=== PATIENT | female | born 1990 | race Caucasian/White ===

== ENCOUNTER 2023-08-31 15:42 | Emergency (ER) | payer OTHER, SELFPAY ==
--- NOTE | 2023-08-31 15:54 | ED.FEMALEGU ---
HPI - Female Genitourinary General Chief complaint: Urogenital-Female Stated complaint: uti symptoms Time Seen by Provider: 08/31/23 15:54 Source: patient Mode of arrival: ambulatory Limitations: no limitations History of Present Illness HPI Narrative: Mikki is a 33-year-old female patient presenting to clinic today with complaints of possible urinary tract infection x2 days. She reports she is having frequency of urination with burning with urination. Did have some back pain yesterday however that has improved. Denies any abdominal pain Related Data Allergies Allergy/AdvReac Type Severity Reaction Status Date / Time Sulfa (Sulfonamide Allergy Other Verified 08/31/23 16:09 Antibiotics) Review of Systems Review of Systems: Pertinent positives per HPI. Patient denies any fever, chills, rash, headache, visual changes, dizziness, cough, runny nose, sore throat, shortness of breath, chest pain, palpitations, nausea, vomiting, diarrhea, constipation, abdominal pain. PMFSH Comments At the time of my signature, I reviewed and agree with the nursing past medical, surgical, social, and family history. There is no relevant family history pertinent to the patient complaint. Exam Narrative: General: Well-developed, well nourished, in no apparent distress. Head: Normocephalic, atraumatic. Cardio: Regular rate and rhythm, s1 and s2 normal, no murmur appreciated. Resp: Clear to auscultation bilaterally, no rhonchi, rales, wheezing or rubs. Abdomen: Soft, pliable, bowel sounds present in all quadrants, non-tender to palpation, no organomegly, no CVAT tenderness. Course Course Emergency Course: Portions of this record may have been created with voice recognition software. Level of Care: Express Care Visit Vital Signs Vital signs: Vital signs reviewed MDM - Female Genitourinary MDM Narrative Medical decision making narrative: At the time of visit patient is resting comfortably on the exam table. Patient appears to be nontoxic. UA shows 2+ leukocytes 1+ blood. Will send urine for culture. Will place patient on Macrobid. Supportive measures were discussed with the patient and they voiced understanding discharge instructions and agrees to treatment plan. Return precautions reviewed Differential Diagnosis Differential diagnosis: Likely urinary tract infection and cystitis Discharge Plan Discharge Clinical Impression: Urinary tract infection Patient Disposition: Home, Self-Care Condition: Stable Instructions: Antibiotic Form, Urinary Tract Infection in Women (ED) Additional Instructions: UA positive for 2+ leukocytes and 1+ blood. We will send urine for culture Take Macrobid as prescribed Increase fluids and stay well hydrated Wipe front to back. May use wet wipes. Avoid tub baths If sexually active- pee before and after intercourse. Wear cotton panties Avoid tight clothing up against the genitals Follow up with your PCP in 1 week if symptoms persist. Prescriptions: New nitrofurantoin monohyd/m-cryst [Macrobid] 100 mg capsule 100 mg PO Q12H 5 Days Qty: 10 0RF Rx Instructions: must administer with a meal/food Follow-up/Referrals: PHYSICIAN,FORKLIFT SUPERVISOR [Primary Care Provider] - Time of Disposition: 16:13 Quality NIHSS Nursing Documentation ED NIHSS nursing documentation: reviewed/agree
[2023-08-31 16:03] VITALS: BP 106/67; PULSE 86; RESP 16; TEMP 36.6; O2SAT 100
== END 2023-08-31 16:16 | disposition home or self-care (01) ==
LOC: EXPTROY 15:56
PROVIDERS: Emergency Provider Nurse Practitioner Family
DX: N39.0 Urinary tract infection, site not specified (principal); B96.20 Unspecified Escherichia coli [E. coli] as the cause of diseases classified elsewhere
CPT/HCPCS: 81003; 87077; 87086; 87186; 99213; G0463

== ENCOUNTER 2023-12-11 15:11 | Emergency (ER) | payer OTHER, SELFPAY ==
[2023-12-11 15:22] VITALS: BP 110/61; PULSE 101; RESP 16; TEMP 36.8; O2SAT 100
--- NOTE | 2023-12-11 15:33 | ED.SKABFB ---
HPI - Skin/Abscess/Foreign Bdy General Chief complaint: Skin/Abscess/Foreign Body Stated complaint: rash Time Seen by Provider: 12/11/23 15:33 Source: patient Mode of arrival: ambulatory Limitations: no limitations History of Present Illness HPI narrative: 33-year-old female presented for complaint of itchy rash to the left wrist and right elbow over the past 3 days. She states rash started after trimming weeds. She endorses a history reaction to poison hever and poison sumac. She has applied hydrocortisone and Benadryl cream and has taken Benadryl without significant improvement. She endorses the lesions have been losing today. Denies lip, tongue, or throat swelling, shortness of breath or wheezing. Denies changes to soap, detergent, lotion, or any other exposures. No one else in the house or any contacts with similar symptoms. Related Data Allergies Allergy/AdvReac Type Severity Reaction Status Date / Time Sulfa (Sulfonamide Allergy Other Verified 12/11/23 15:26 Antibiotics) Review of Systems Review of Systems: CONSTITUTIONAL: Denies body aches, fever, chills, or sweats. EYES: Denies visual changes, redness, or discharge. ENT: Denies rhinorrhea, congestion CARDIOVASCULAR: Denies chest pain, palpitations, or edema. RESPIRATORY: Denies cough or dyspnea. GASTROINTESTINAL: Denies abdominal pain, nausea, vomiting, or diarrhea. SKIN: reports rash to left wrist and right arm MUSCULOSKELETAL: Denies back pain, joint pain, or myalgia. NEUROLOGIC: Denies headache, numbness, tingling, or weakness. PMFSH Comments At time of signature, I have reviewed and agree with nursing past medical, surgical, social and family history unless otherwise noted. Please see nursing chart for further information. There is no relevant family history pertinent to the presenting complaint Exam Narrative: GENERAL: Well-appearing HEAD: Normocephalic, atraumatic. EYES: conjunctivae clear, and EOMI. ENT: Mucous membranes moist. Oropharynx without edema, erythema or lesions. NECK: Supple. No lymphadenopathy CHEST: Clear to auscultation. HEART: Regular rate and rhythm. SKIN: Warm, dry. Left wrist with approx 2cm diameter area of vesicles with clear drainage c/w contact dermatitis; right AC with vesicles in linear pattern approx 2cm length, and cluster of vesicles medially; c/w contact derm. No induration, no tenderness. NEURO: Alert and oriented x3. Course Course Emergency Course: Patient is aware of diagnosis, understands and agrees to treatment plan. Anticipatory guidance given. Patient agrees to follow-up as directed and is aware of reasons to seek care at the emergency department. Portions of this record may have been created with voice recognition software Level of Care: Express Care Visit Vital Signs Vital signs: Vital Signs Temperature 98.2 F 12/11/23 15:22 Pulse Rate 101 H 12/11/23 15:22 Respiratory Rate 16 12/11/23 15:22 Blood Pressure 110/61 12/11/23 15:22 Pulse Oximetry 100 12/11/23 15:22 Oxygen Delivery Room Air 12/11/23 15:22 Temperature 98.2 F 12/11/23 15:22 Pulse Rate 101 H 12/11/23 15:22 Respiratory Rate 16 12/11/23 15:22 Blood Pressure 110/61 12/11/23 15:22 Pulse Oximetry 100 12/11/23 15:22 Oxygen Delivery Room Air 12/11/23 15:22 Reviewed MDM - Skin/Abscess/Foreign Bdy MDM Narrative Medical decision making narrative: Discussed physical exam findings. Advised supportive measures and signs/symptoms to go to the ER. Pt is appropriate for outpt treatment and f/u. Instructed patient to go to nearest ER immediately for any worsening symptoms including but not limited to: fever, spreading rash, pain, sore throat, headache, dizziness, chest pain, trouble breathing, or any symptoms concerning to the patient. Differential Diagnosis Differential diagnosis: Likely abscess of skin or subcutaneous tissue, urticaria, herpes zoster, cellulitis and contact dermatitis Disc
== END 2023-12-11 15:42 | disposition home or self-care (01) ==
PROVIDERS: Emergency Provider Nurse Practitioner Family
DX: L25.9 Unspecified contact dermatitis, unspecified cause (principal)
CPT/HCPCS: 99213; G0463

== ENCOUNTER 2024-03-08 19:29 | Emergency (ER) | payer OTHER, SELFPAY ==
[2024-03-08 19:39] VITALS: BP 141/81; PULSE 78; RESP 16; TEMP 36.2; O2SAT 100
--- NOTE | 2024-03-08 19:40 | ED.GENADULT ---
HPI - General Adult General Chief complaint: Urogenital-Female Stated complaint: UTI SYMPTOMS Time Seen by Provider: 03/08/24 19:41 History of Present Illness HPI narrative: patient presents with complaints of urinary frequency and burning since yesterday. Denies any back pain or abdominal pain. No fever, chills, sweats. Voices no other concerns or complaints at this time. Related Data Allergies Allergy/AdvReac Type Severity Reaction Status Date / Time Sulfa (Sulfonamide Allergy Other Verified 12/11/23 15:26 Antibiotics) Review of Systems Review of Systems: All systems reviewed & are unremarkable except as noted in HPI and below Constitutional: Constitutional: Reports no additional constitutional complaints ENT: Reports system reviewed and no additional complaints, except as documented Cardiovascular: Cardiovascular: Reports no additional cardiovascular complaints Respiratory: Respiratory: Reports no additional respiratory complaints Gastrointestinal: Gastrointestinal: Reports no additional gastrointestinal complaints Genitourinary: Genitourinary: Reports dysuria, Reports urinary hesitancy and Reports urinary urgency Exam Const: General: cooperative, no acute distress, alert and awake Orientation/consciousness: oriented to person, oriented to place and oriented to time HENMT: Head: normal to inspection Resp: Effort & Inspection: normal respiratory effort and able to speak in complete sentences Auscultation: clear to auscultation bilaterally, no crackles, no rales, no rhonchi and no wheezes Cardio: Palpation: normal PMI Rate: regular rate Rhythm: regular rhythm Heart sounds: S1 normal heart sound present and S2 normal heart sound present : General: Yes bladder normal to palpation and Yes no CVA tenderness Neuro: General: oriented to person, oriented to place and oriented to time Cranial nerves: Yes CN's II-XII intact bilaterally Psych: Appearance: grossly normal Thought process: Normal thought process present Insight: Good insight present (Psych) Judgement: Good judgement present (Psych) Course Course Level of Care: Express Care Visit Vital Signs Vital signs: Vital Signs Temperature 97.1 F L 03/08/24 19:39 Pulse Rate 78 03/08/24 19:39 Respiratory Rate 16 03/08/24 19:39 Blood Pressure 141/81 H 03/08/24 19:39 Pulse Oximetry 100 03/08/24 19:39 Temperature 97.1 F L 03/08/24 19:41 Pulse Rate 78 03/08/24 19:41 Respiratory Rate 16 03/08/24 19:41 Blood Pressure 141/81 H 03/08/24 19:41 Pulse Oximetry 100 03/08/24 19:41 Medical Decision Making MDM Narrative Medical decision making narrative: UA suggestive of UTI. Culture sent. Negative test. Benign exam. Sent home with prescription for Macrobid. Elevated blood pressure discussed. Patient follow-up with primary care provider. Emergency department for any new or worsening symptoms Differential Diagnosis Differential Diagnosis: differential diagnoses include pyelonephritis, UTI, cystitis, dysuria Medical Records Medical records reviewed: Yes I reviewed the external patient's medical records. Vital Signs Vital Signs: Vital Signs Temperature 97.1 F L 03/08/24 19:39 Pulse Rate 78 03/08/24 19:39 Respiratory Rate 16 03/08/24 19:39 Blood Pressure 141/81 H 03/08/24 19:39 Pulse Oximetry 100 03/08/24 19:39 Temperature 97.1 F L 03/08/24 19:41 Pulse Rate 78 03/08/24 19:41 Respiratory Rate 16 03/08/24 19:41 Blood Pressure 141/81 H 03/08/24 19:41 Pulse Oximetry 100 03/08/24 19:41 reviewed Lab Data Lab results reviewed: Yes I reviewed the patient's lab results. Labs: Lab Results 03/08/24 Range/Units 19:48 POC Urine Color Yellow POC Urine Clarity Cloudy POC Urine pH 5.5 POC Ur Specif [place] 1.005 POC Urine Protein Negative POC Ur Glucose (UA) Negative POC Urine Ketones Negative POC Urine Blood 1+ POC Urine Nitrite Negat
[2024-03-08 19:41] VITALS: BP 141/81; PULSE 78; RESP 16; TEMP 36.2; O2SAT 100
[2024-03-08 19:50] LABS: EDUAAPPEAR Cloudy; EDUABILI Negative; EDUABLOOD 1+; EDUACOLOR1 Yellow; EDUAGLUCOSE Negative; EDUAKETONE Negative; EDUALEUKO 1+; EDUANITRATE Negative; EDUAPH 5.5; EDUAPROTEIN Negative; EDUASPGRAVITY 1.005; EDUAUROBILI 0.2
== END 2024-03-08 20:02 | disposition home or self-care (01) ==
PROVIDERS: Emergency Provider Nurse Practitioner Family
DX: N39.0 Urinary tract infection, site not specified (principal); B96.20 Unspecified Escherichia coli [E. coli] as the cause of diseases classified elsewhere
CPT/HCPCS: 81003; 81025; 87077; 87086; 87186; 99213; G0463

== ENCOUNTER 2024-11-01 10:11 | Emergency (ER) | payer OTHER, SELFPAY ==
--- NOTE | ~2024-11-01 | XR_ITS ---
Clinical Indication: Cough PA and lateral views of the chest: Comparison: 12/09/2019 Findings: The lungs are clear, without evidence of focal consolidation or pleural effusion. Cardiome diastinal silhouette is within normal limits. Bones and soft tissues are unremarkable. Impression: Normal chest. Reviewed, dictated and finalized at [facility]. Impression: Normal chest.
--- OUTSIDE RECORDS SUMMARY | 2024-11-01 10:12 | XMS_ITS | Clinical Summary ---
Author Organization [facility] Address [address] [place] [address] Care Team Providers Care Mechanical Striper Name Role Phone Unavailable Primary Care Provider Unavailabl e Source Comments [facility],non-owned Affiliates and Associated Physician Practices is amultiple site organization consisting of ambulatory clinics and hospital sitesin [place], [place], [place] and [place]. This disclosure is being madepursuant to the Care Everywhere program and may not contain all information available regarding this patient. Last updated 18.[facility] Allergies Active Allergy Reactions Criticality Noted Date Comments Sulfa Drugs 04/14/2013 Medications Be aware that medications may not be up to date on this document. Always verify current medications with the patient. No known medications Active Problems No known active problems Social History Tobacco Use Types Packs/Day Years Used Date Smoking Tobacco: Never Alcohol Use Standard Drinks/Week Comments Yes 1.7 (1 standard drink = 0.6 oz p ure alcohol) Sex and Gender Information Value Date Recorded Sex Assigned at Not on file Gender Identity Not on file Sexual Orientation Not on file Last Filed Vital Signs Vital Sign Reading Time Taken Comments Blood Pressure 110/73 04/14/2013 11:07 AM CDT Pulse 64 04/14/2013 11:07 AM CDT Temperature 36.3 C (97.3 F) 04/14/2013 11:07 AM CDT Respiratory Rate 16 04/14/2013 11:07 AM CDT Oxygen Saturation 100% 04/14/2013 11:07 AM CDT Inhaled Oxygen Concentration - - Weight 59.4 kg (131 lb) 04/14/2013 11:07 AM CDT Height 162.6 cm (5' 4 ) 04/14/2013 11:07 AM CDT Body Mass Index 22.49 04/14/2013 11:07 AM CDT Plan of Treatment Health Maintenance Due Date Last Done Comments PAP SMEAR 1989 HIV SCREENING 2004 HEPATITIS C SCREENING 07/21/2007 DTAP/TDAP/TD VACCINES (1 - Tdap) 2008 HEPATITIS B VACCINE (1 of 3 - 19+ 3-dose series) 2008 COVID-19 VACCINE (1 - 2023-2 5 season) 2024 INFLUENZA VACCINE (#1) 2024 DEPRESSION SCREENING 08/26/2024 ZOSTER VACCINE (1 of 2) 2039 HIB VACCINE Aged Out No longer eligi ble based on patient's age to complete this topic HPV VACCINE Aged Out No longer eligi ble based on patient's age to complete this topic MENINGOCOCCAL (Group B) VACCINE Aged Out No longer eligible based on patient's age to complete this topic MENINGOCOCCAL VACCINE Aged Out No joseph shea eligible based on patient's age to complete this topic PNEUMOCOCCAL VACCINE Aged Out No long er eligible based on patient's age to complete this topic
--- OUTSIDE RECORDS SUMMARY | 2024-11-01 10:12 | XMS_ITS | Referral Summary ---
Author Organization [facility] Address [address] [place] [address] Care Team Providers Care Stock Or Delivery Clerk Name Role Phone Unavailable Primary Care Provider Unavailabl e Source Comments [facility],non-owned Affiliates and Associated Physician Practices is amultiple site organization consisting of ambulatory clinics and hospital sitesin [place], [place], [place] and [place]. This disclosure is being madepursuant to the Care Everywhere program and may not contain all information available regarding this patient. Last updated 18.[facility] Allergies Active Allergy Reactions Criticality Noted Date [...] 04/14/2013 11:07 AM CDT Plan of Treatment Not on file
--- OUTSIDE RECORDS SUMMARY | 2024-11-01 10:12 | XMS_ITS | Patient Health Summary ---
Author Organization [facility] Address [address] [place] [address] Care Team Providers Care Health Care Specialist Name Role Phone Unavailable Primary Care Provider Unavailabl e Note from [facility],non-owned Affiliates and Associated Physician Practices is amultiple site organization consisting of ambulatory clinics and hospital sitesin [place], [place], [place] and [place]. This disclosure is being madepursuant to the Care Everywhere program and may not contain all information available regarding this patient. Last updated 18.[facility] Allergies * Sulfa Drugs Medications Be aware that medications may not [...] Mass Index 22.49 04/14/2013 11:07 AM CDT Procedures * VARICELLA ZOSTER ANTIBODY IGG(Performed 04/14/2013) Performed for Routine general medical examination at a health care facility Results * (ABNORMAL) VARICELLA ZOSTER ANTIBODY IGG (04/14/2013 11:43 AM CDT) Varicella zoster Virus Antibody IgG 0.93(L) Immune >1.09 index [facility] ACCOUNT BILL Comment: Nonimmune <0.91 Equivocal 0.91 - 1.09 Immune >1.09 Blood specimen (specimen) BLOOD SPECIMEN / Unknown 04/14/2013 11:43 AM CDT 04/14/2013 7:14 PM CDT Narrative Resulting Agency Comment [facility] [address] [id number] Carla Sandoval APRN-PATTERN SHOP SUPERVISOR LAB - CHEMISTRY E[place]S [facility] ACCOUNT BILL
--- NOTE | 2024-11-01 10:20 | ED_ITS ---
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 She has been taking hrwm-ind-maxwqod medications for her symptoms with moderate relief. Says that she thought she was beginning to feel better yesterday, but awakened this morning feeling poorly again. She has had multiple sick contacts, some with influenza. She is very concerned today because she has a cough that is productive of yellow sputum. She is requesting a chest x-ray Related Data Allergies Allergy/AdvReac Type Severity Reaction Status Date / Time Sulfa (Sulfonamide Allergy Mild Hives Verified 11/01/24 10:12 Antibiotics) Review of Systems Review of Systems: All systems reviewed & are unremarkable except as noted in HPI and below Constitutional: Constitutional: Reports no additional constitutional complaints, Reports body ache(s), Reports chills, Reports headache(s) and Reports lethargy ENT: Reports system reviewed and no additional complaints, except as documented, Reports nasal congestion, Reports nasal discharge, Reports sinus pain, Reports sinus pressure and Reports sore throat Cardiovascular: Cardiovascular: Reports no additional cardiovascular complaints Respiratory: Respiratory: Reports no additional respiratory complaints, Reports change in phlegm color and Reports cough Gastrointestinal: Gastrointestinal: Reports no additional gastrointestinal complaints PMFSH Comments At the time of my signature, I reviewed and agree with the nursing past medical, surgical, social, and family history. There is no relevant family history pertinent to the patient complaint. Exam Const: General: cooperative, no acute distress, alert and awake Orientation/consciousness: oriented to person, oriented to place and oriented to time HENMT: Head: normal to inspection Resp: Effort & Inspection: normal respiratory effort and able to speak in complete sentences Auscultation: clear to auscultation bilaterally, no crackles, no rales, no rhonchi and no wheezes Cardio: Palpation: normal PMI Rate: regular rate Rhythm: regular rhythm Heart sounds: S1 normal heart sound present and S2 normal heart sound present Neuro: General: oriented to person, oriented to place and oriented to time Cranial nerves: Yes CN's II-XII intact bilaterally Psych: Appearance: grossly normal Thought process: Normal thought process present Insight: Good insight present (Psych) Judgement: Good judgement present (Psych) Course Course Level of Care: Express Care Visit Vital Signs Vital signs: Reviewed MDM - URI/Sore Throat MDM Narrative Medical decision making narrative: reassuring physical exam, positive influenza. Supportive care measures discussed. Negative chest x-ray. Discharge instructions reviewed with patient, as well as provided in writing per nursing staff. The instructions also include specific and strict return/GO TO THE ER as well as f/u information. All questions have been answered, and the patient deny any further questions with discharge and discharge plan. Some parts of this dictation were generated by voice recognition software and may contain typographical and/or grammatical inaccuracies. Differential Diagnosis Differential diagnosis: Likely upper respiratory infection, viral infection and influenza Medical Records Attestation: I reviewed the patient's medical records. Lab Data Attestation: I reviewed the patient's lab results. Imaging Data Attestation: I personally reviewed and interpreted this imaging study as follows: My impression: no acute findings Radiologist's impression: [place] [address] XRay Report Signed Patient: Rody Mariee : 1990 MR#: [id number] Age: 34 Acct:[id number] Loc: [facility] ADM Date: 11/01/24Attending Dr: Ordering Physician: Nohemi Garnett FNP Date of Service: 11/01/24 Procedure(s): XR chest 2V Accession Number(s): [id number] cc: Nohemi Garnett FNP; PAPER CUP HANDLE MACHINE OPERATOR PHYSICIAN~ Clinical Indication: Cough PA and lateral views of the chest: Comparison: 12/09/2019 Findings: The lungs are clear, without evidence of focal consolidation or pleural effusion. Cardiomediastinal silhouette is within normal limits. Bones and soft tissues are unremarkable. Impression: Normal chest. Reviewed, dictated and finalized at location . Please be advised this is a medical document. It is intended for jqhd-mb-vozi communication. It is written in medical language and may contain unfamiliar abbreviations or verbiage. Medical documents are intended to carry relevant information, facts as evident, and the clinical opinion of the practitioner at the time of the encounter. This report may have been done utilizing a voice recognition system. Attempts have been made to correct errors. However, there may be uncorrected grammatical, spelling, and recognition errors present. The file time of this note does not necessarily represent the time of service. Dictated By: Vernon Pardo MD 11/01/24 1034 Signed By: <Electronically signed by Vernon Pardo MD in OV> Discharge Plan Discharge Clinical Impression: Influenza Patient Disposition: Home, Self-Care Condition: Stable Instructions: Antibiotic Form, Influenza (ED) Additional Instructions: Use chlh-uvo-gwhxhmb medications to treat symptoms. Follow package instructions. Follow-up with primary care provider. Emergency department for new or worsening symptoms Patient Language: Portuguese Prescriptions: New benzonatate 200 mg capsule 200 mg PO TID PRN (Reason: cough) Qty: 60 0RF Follow-up/Referrals: PHYSICIAN,PAPER CUP HANDLE MACHINE OPERATOR [Primary Care Provider] - Stand Alone Forms: Work/School Release IP Time of Disposition: 10:43
[2024-11-01 10:22] VITALS: BP 116/70; PULSE 99; RESP 16; TEMP 36.7; O2SAT 99
[2024-11-01 10:25] LABS: EDINFLUASCREEN Positive (Negative); EDINFLUBSCREEN Negative (Negative)
[2024-11-01 10:38] LABS: EDCOVIDSCREEN Negative (Negative)
== END 2024-11-01 10:44 | disposition home or self-care (01) ==
PROVIDERS: Emergency Provider Nurse Practitioner Family
DX: J10.1 Influenza due to other identified influenza virus with other respiratory manifestations (principal); Z86.16 Personal history of COVID-19; Z20.822 Contact with and (suspected) exposure to COVID-19
CPT/HCPCS: 71046; 87426; 87804; 99213; G0463